=== PATIENT | female | born 1950 | race Caucasian/White ===

== ENCOUNTER 2021-02-15 15:24 | Emergency (ER) | payer MEDICARE, OTHER ==
[2021-02-15] MEDS ORDERED: Sodium Chloride 0.9% 10 ML Syringe FLUSH PRN (16:08)
--- NOTE | 2021-02-15 16:25 | EDM.PDOC ---
ED HPI GENERAL MEDICAL PROBLEM - General Chief Complaint: Respiratory Problem Stated Complaint: COVID +\COUGH Time Seen by Provider: 02/15/21 15:51 Source of Information: Reports: Patient History Limitations: Reports: No Limitations - History of Present Illness INITIAL COMMENTS - FREE TEXT/NARRATIVE: 70-year-old female presents the emergency department today with complaints of w orsening Covid symptoms. States she developed symptoms approximately 7 days ago consistent with cough, shortness of breath, body aches, nausea and diarrhea. She states she was seen at [facility] yesterday and tested positive for Covid. States she is feeling weaker today. Has not been able to eat or drink much of anything due to the nausea and diarrhea. She states she has been checking her oxygen level at home and she is consistently been 98% on room air. Patient states she did not have her Covid vaccines this year. She does have a history of diabetes. She did not have her Covid vaccine. - Related Data Allergies Allergy/AdvReac Type Severity Reaction Status Date / Time No Known Allergies Allergy Verified 02/15/21 16:22 Home Meds: Home Meds Chlorthalidone 25 mg PO DAILY 02/15/21 [History] Potassium Chloride 20 meq PO DAILY 02/15/21 [History] Simvastatin [Zocor] 40 mg PO BEDTIME 02/15/21 [History] metFORMIN HCl [Metformin HCl] 1,000 mg PO BID 02/15/21 [History] Past Medical History - Past Health History Medical/Surgical History: Denies Medical/Surgical History - Infectious Disease History Infectious Disease History: Reports: Novel Coronavirus Social & Family History - Family History Family Medical History: No Pertinent Family History - Tobacco Use Tobacco Use Status *Q: Never Tobacco User Second Hand Smoke Exposure: No - Caffeine Use Caffeine Use: Reports: Coffee - Recreational Drug Use Recreational Drug Use: No ED ROS GENERAL - Review of Systems Review Of Systems: Comprehensive ROS is negative, except as noted in HPI. ED EXAM, GENERAL - Physical Exam Exam: See Below Exam Limited By: No Limitations General Appearance: Alert, WD/WN, No Apparent Distress Ears: Normal External Exam, Hearing Grossly Normal Nose: Normal Inspection Throat/Mouth: Normal Inspection, Normal Lips, Normal Voice, No Airway Compromise Head: Atraumatic Neck: Normal Inspection, Supple Respiratory/Chest: No Respiratory Distress, No Accessory Muscle Use, Decreased Breath Sounds, Crackles (Lateral bases posteriorly), Wheezing (Fine expiratory wheeze noted anteriorly) Cardiovascular: Normal Peripheral Pulses, Regular Rate, Rhythm, No Edema, No Murmur Peripheral Pulses: 2+: Radial (L), Radial (R) GI/Abdominal: Normal Bowel Sounds, Soft, Non-Tender, No Distention (Female) Exam: Deferred Rectal (Female) Exam: Deferred Back Exam: Normal Inspection, Full Range of Motion Extremities: Normal Inspection, Normal Range of Motion, Non-Tender, No Pedal Edema, Normal Capillary Refill Neurological: Alert, Oriented, Normal Cognition Psychiatric: Normal Affect, Normal Mood Skin Exam: Warm, Dry, Intact, Normal Color, No Rash Lymphatic: No Adenopathy Course - Vital Signs Text/Narrative:: Physical exam reveals an ill-appearing female. She is 92 to 93% on room air. Lung sounds reveal fine expiratory wheeze noted anteriorly with crackles noted to the bilateral bases posteriorly. Will obtain lab studies to include a CBC, CMP, C-reactive protein, magnesium and a D-dimer. Also obtain a portable chest x-ray. Last Recorded V/S: Last Vital Signs Temp 98.2 F 02/15/21 21:00 Pulse 64 02/15/21 21:00 Resp 14 02/15/21 21:00 BP 117/70 02/15/21 21:00 Pulse Ox 94 L 02/15/21 21:00 - Orders/Labs/Meds Labs: Laboratory Tests 02/15/21 02/15/21 02/15/21 Range/Units 16:50 16:50 16:50 WBC 3.54 L (3.98-10.04) K/mm3 RBC 4.22 (3.98-5.22) M/mm3 Hgb 12.9 (11.2-15.7) gm/dl Hct 37.3 (34.1-44.9) % MCV 88.4 (79.4-94.8) fl MCH 30.6 (25.6-32.2) pg MCHC 34.6 (32.2-35.5) g/dl RDW Std Deviation 38.3 (36.4-46.3) fL Plt Count 109 L (182-369) K/mm3 MPV 9.6 (9.4-12.3) fl Neut % (Auto) 75.4 H (34.0-71.1) % Lymph % (Auto) 14.7 L (19.3-51.7) % Grant % (Auto) 9.3 (4.7-12.5) % Eos % (Auto) 0 L (0.7-5.8) Baso % (Auto) 0.0 L (0.1-1.2) % Neut # (Auto) 2.67 (1.56-6.13) K/mm3 Lymph # (Auto) 0.52 L (1.18-3.74) K/mm3 Grant # (Auto) 0.33 (0.24-0.36) K/mm3 Eos # (Auto) 0.00 L (0.04-0.36) K/mm3 Baso # (Auto) 0.00 L (0.01-0.08) K/mm3 D-Dimer, Quantitative 0.77 H (0.19-0.50) mg/L Sodium 130 L (136-145) mEq/L Potassium 3.0 L (3.5-5.1) mEq/L Chloride 90 L (98-107) mEq/L Carbon Dioxide 33 H (21-32) mEq/L Anion Gap 10.0 (5-15) BUN 9 (7-18) mg/dL Creatinine 0.8 (0.55-1.02) mg/dL Est Cr Clr Drug Dosing TNP Estimated GFR (MDRD) > 60 (>60) mL/min BUN/Creatinine Ratio 11.3 L (14-18) Glucose 146 H (70-99) mg/dL Calcium 8.4 L (8.5-10.1) mg/dL Magnesium 1.4 L (1.8-2.4) mg/dL Total Bilirubin 0.6 (0.2-1.0) mg/dL AST 34 (15-37) U/L ALT 27 (14-59) U/L Alkaline Phosphatase 62 (46-116) U/L C-Reactive Protein 8.2 H* (<1.0) mg/dL Total Protein 6.6 (6.4-8.2) g/dl Albumin 3.3 L (3.4-5.0) g/dl Globulin 3.3 gm/dL Albumin/Globulin Ratio 1.0 (1-2) Meds: Medications Discontinued Medications Generic Name Dose Route Start Last Admin Trade Name Freq PRN Reason Stop Dose Admin Diphenhydramine HCl 50 mg 02/15/21 18:23 Diphenhydramine 50 Mg/Ml Sdv IVPUSH ASDIRECTED PRN hypersensitivity reaction Epinephrine HCl 0.3 mg 02/15/21 18:23 Epinephrine 1 Mg/Ml Sdv IM ASDIRECTED PRN hypersensitivity reaction Famotidine 20 mg 02/15/21 18:23 Famotidine 20 Mg/2 Ml Sdv IVPUSH ASDIRECTED PRN hypersensitivity reaction Sodium Chloride 1,000 mls @ 250 mls/hr 02/15/21 16:30 02/15/21 16:31 Normal Saline IV 250 mls/hr ASDIRECTED PRAKASH Administration CASIRIVIMAB/IMDEVIMAB 10 ml/ 110 mls @ 220 mls/hr 02/15/21 18:23 02/15/21 19:31 Sodium Chloride IV 02/15/21 18:52 220 mls/hr ONETIME ONE Administration Magnesium Oxide 400 mg 02/15/21 19:30 02/15/21 20:21 Magnesium Oxide 400 Mg Tab PO 02/15/21 19:31 400 mg ONETIME ONE Administration Methylprednisolone Sodium Succinate 125 mg 02/15/21 18:23 Methylprednisolone Sodium Succinate 125 Mg/2 Ml Sdv IVPUSH ASDIRECTED PRN hypersensitivity reaction Ondansetron HCl 4 mg 02/15/21 18:23 02/15/21 18:45 Ondansetron 4 Mg/2 Ml Sdv IVPUSH 02/15/21 18:24 4 mg ONETIME ONE Administration Potassium Chloride 40 meq 02/15/21 18:23 02/15/21 18:46 Potassium Chloride 20 Meq Tab.Er PO 02/15/21 18:24 40 meq ONETIME ONE Administration Potassium Chloride 40 meq 02/15/21 21:07 02/15/21 21:25 Potassium Chloride 20 Meq Tab.Er PO 02/15/21 21:08 40 meq ONETIME ONE Administration Sodium Chloride 10 ml 02/15/21 16:08 02/15/21 16:28 Sodium Chloride 0.9% 10 Ml Syringe FLUSH 10 ml ASDIRECTED PRN Administration Keep Vein Open Sodium Chloride 30 ml 02/15/21 18:30 Sodium Chloride 0.9% 10 Ml Syringe FLUSH ASDIRECTED PRAKASH - Radiology Interpretation Free Text/Narrative:: Infiltrates noted to right lower lobe as well as left upper and lower lobe. Fo rmal radiologist report is pending. - Re-Assessments/Exams Free Text/Narrative Re-Assessment/Exam: 02/15/21 18:01 Radiologist impression frontal view of the chest: 1. Patchy areas of increased density on both sides of the chest which is worse on the left side. Findings are compatible with COVID-19 pneumonia. 02/15/21 18:20 I spoke with the patient to provide information about Regeneron for herself. I offered her the fax sheet for patients and caregivers for Regeneron to read and review. I stated the therapy has been approved by an emergency use auth orization process and has not fully been FDA reviewed or approved. I shared the potential risks from the therapy including risks/adverse reactions. I discussed there are other potential treatment options that are currently not FDA approved to treat COVID-19. Discussed with the patient that is not an exclusion for Regeneron treatment with the therapy has not been fully evaluated in patients. Offered opportunity ask questions and all questions were answered. Patient voiced understanding and agreed to proceed with treatment for herself. Hematology reveals a WBC of 3.54, hemoglobin 12.9, hematocrit 37.3, platelet count 109 Coagulation reveals a D-dimer of 0.77 Chemistry reveals a sodium of 130, potassium 3.0, chloride 90, carbon dioxide 33, anion gap 10, BUN 9, creatinine 0.8, glucose 146, magnesium 1.4, C-reactive protein 8.2 We will give the patient potassium 40 mEq p.o. As well as an oral dose of magnesium. 02/15/21 21:20 Patient has completed her infusion. She has also been observed for 1 hour after infusion. She will be discharged home with recommendations that she continue to quarantine for total 10 days from symptom onset. We will also send her home with potassium chloride 40 mill equivalent tab to be taken tomorrow in the a.m. with food. Departure - Departure Time of Disposition: 21:30 Disposition: Home, Self-Care 01 Condition: Good Clinical Impression: COVID-19 - Discharge Information Instructions: COVID-19: Quarantine vs. Isolation - [facility] (03/06/2020) Referrals: Mirella Alberto MD [Primary Care Provider] - Forms: ED Department Discharge Additional Instructions: You were seen in the emergency department today with complaints of worsening Covid symptoms. Lab studies were completed and they did show that your potassium level was low. You did receive oral potassium supplementation while in the emergency department. I also did send supplementation home with you this evening to be taken tomorrow morning with food. Be sure you are drinking plenty of electrolyte rich fluids such as Gatorade or Powerade. Eat small frequent meals. Recommend that you get plenty of rest. Chest x-ray was completed which does show some pneumonia in your lungs however this is viral in origin and cannot be treated with antibiotics. You did receive antibody treatment for Covid while in the emergency department. You likely will begin to feel better within the next couple of days. However, you do need to continue to quarantine for a total of 10 days time from the onset of your first symptoms. Should your condition worsen or change, do not hesitate returning to the emergency department. Sepsis Event Note (ED) - Evaluation Sepsis Screening Result: No Definite Risk
[2021-02-15] MEDS ORDERED: Sodium Chloride 0.9% 1,000 ML IV SCH (16:30)
--- NOTE | 2021-02-15 17:03 | CR ---
Chest: Frontal view of the chest was obtained. Comparison: No prior chest imaging is available. Patchy areas of increased density are seen within both sides of the chest, worse on the left side. Heart size is normal. Thoracic aorta appears to be tortuous. Bony structures are osteopenic. Nothing acute is seen within the osseous structures. Impression: 1. Patchy areas of increased density on both sides of the chest which is worse on the left side. Findings are compatible with COVID-19 pneumonia. Diagnostic code #3
[2021-02-15] MEDS ORDERED: Famotidine 20 MG/2 ML SDV IVPUSH PRN (18:23)
[2021-02-15] MEDS ORDERED: Ondansetron 4 MG/2 ML SDV IVPUSH ONE (18:23)
[2021-02-15] MEDS ORDERED: Potassium Chloride 20 MEQ Tab.ER PO ONE ×2 (18:23→21:07)
[2021-02-15] MEDS ORDERED: EPINEPHrine 1 MG/ML SDV IM PRN (18:23)
[2021-02-15] MEDS ORDERED: methylPREDNISolone Sodium Succinate 125 MG/2 ML SDV IVPUSH PRN (18:23)
[2021-02-15] MEDS ORDERED: diphenhydrAMINE 50 MG/ML SDV IVPUSH PRN (18:23)
[2021-02-15] MEDS ORDERED: Sodium Chloride 0.9% 10 ML Syringe FLUSH SCH (18:30)
[2021-02-15] MEDS ORDERED: Magnesium Oxide 400 MG Tab PO ONE (19:30)
== END 2021-02-15 21:21 | disposition home or self-care (01) ==
LOC: JD.ED 15:24
DX: U07.1 COVID-19 (principal); E11.9 Type 2 diabetes mellitus without complications; Z79.84 Long term (current) use of oral hypoglycemic drugs
CPT/HCPCS: 36415; 71045; 80053; 83735; 85025; 85379; 86140; 96374; 99284; A9270; J2405; J7030; M0243; Q0243

== ENCOUNTER 2021-02-18 11:18 | Emergency (ER) | payer MEDICARE, OTHER ==
[2021-02-18] MEDS ORDERED: Sodium Chloride 0.9% 10 ML Syringe FLUSH PRN (11:41)
[2021-02-18] MEDS ORDERED: Dexamethasone 6 MG TABLET PO ONE (11:44)
[2021-02-18] MEDS ORDERED: Sodium Chloride 0.9% 1,000 ML IV STA (11:44)
[2021-02-18] MEDS ORDERED: Ondansetron 4 MG/2 ML SDV IVPUSH ONE (11:44)
--- NOTE | 2021-02-18 12:20 | CR ---
Chest: Frontal view of the chest was obtained. Comparison: Prior chest x-ray of 02/15/21. Increasing density is seen within both sides of the chest when compared to prior study. Heart size is normal. Tortuous thoracic aorta is seen. Bony structures show nothing acute. Impression: 1. Increasing density within both sides of the chest compatible with increasing COVID-19 pneumonia. Diagnostic code #3
[2021-02-18] MEDS ORDERED: Potassium Chloride 20 MEQ Tab.ER PO ONE (13:08)
--- NOTE | 2021-02-18 13:08 | EDM.PDOC ---
ED HPI GENERAL MEDICAL PROBLEM - General Chief Complaint: Respiratory Problem Stated Complaint: COVID+ SOB Time Seen by Provider: 02/18/21 11:30 Source of Information: Reports: Patient, Old Records, RN Notes Reviewed History Limitations: Reports: No Limitations - History of Present Illness INITIAL COMMENTS - FREE TEXT/NARRATIVE: Patient is a 70-year-old female returning to the emergency department for evaluation of ongoing Covid symptoms. She is on day 10 of her illness. Complains of cough, shortness of breath, body aches, nausea, intermittent abdominal pain, decreased appetite, and diarrhea. She was seen in this emergency department 3 days ago. Had work-up completed which showed hypokalemia and Covid pneumonia. She received monoclonal antibody infusion on that day. She reports symptoms have not improved. She denies any significant chest pain or shortness of breath at rest. She is in watching her oxygen saturations and states that they have been "fluctuating in the 80s and 90s". She denies any known fevers. She has not been taking any over the counter medications for treatment. Left Upper Abdomen Pain Score (Numeric/FACES): 6 - Related Data Allergies Allergy/AdvReac Type Severity Reaction Status Date / Time No Known Allergies Allergy Verified 02/15/21 16:22 Home Meds: Home Meds Chlorthalidone 25 mg PO DAILY 02/15/21 [History] Potassium Chloride 20 meq PO DAILY 02/15/21 [History] Simvastatin [Zocor] 40 mg PO BEDTIME 02/15/21 [History] metFORMIN HCl [Metformin HCl] 1,000 mg PO BID 02/15/21 [History] Nitrofurantoin Monohyd/M-Cryst [Macrobid 100 mg Capsule] 100 mg PO BID 5 Days #9 capsule 02/18/21 [Rx] Ondansetron [Zofran ODT] 4 mg PO Q6H PRN #10 tab.dis 02/18/21 [Rx] dexAMETHasone [Decadron] 6 mg PO DAILY #4 tablet 02/18/21 [Rx] Past Medical History - Past Health History Medical/Surgical History: Denies Medical/Surgical History Endocrine/Metabolic History: Reports: Diabetes, Type II - Infectious Disease History Infectious Disease History: Reports: Novel Coronavirus - Past Surgical History HEENT Surgical History: Reports: Tonsillectomy Social & Family History - Family History Family Medical History: No Pertinent Family History - Tobacco Use Tobacco Use Status *Q: Never Tobacco User Second Hand Smoke Exposure: No - Caffeine Use Caffeine Use: Reports: None - Recreational Drug Use Recreational Drug Use: No ED ROS GENERAL - Review of Systems Review Of Systems: See Below Constitutional: Reports: Weakness, Fatigue, Decreased Appetite. Denies: Fever, Chills HEENT: Reports: No Symptoms Respiratory: Reports: Shortness of Breath, Cough Cardiovascular: Reports: Dyspnea on Exertion. Denies: Chest Pain, Lightheadedness, Palpitations, Syncope Endocrine: Reports: No Symptoms GI/Abdominal: Reports: Abdominal Pain, Diarrhea, Nausea. Denies: Vomiting : Reports: No Symptoms Musculoskeletal: Reports: No Symptoms Skin: Reports: No Symptoms Neurological: Reports: No Symptoms Psychiatric: Reports: No Symptoms Hematologic/Lymphatic: Reports: No Symptoms Immunologic: Reports: No Symptoms ED EXAM, GENERAL - Physical Exam Exam: See Below Exam Limited By: No Limitations General Appearance: Alert, WD/WN, No Apparent Distress Eye Exam: Bilateral Eye: Normal Inspection Respiratory/Chest: No Respiratory Distress, No Accessory Muscle Use, Chest Non- Tender, Other (Faint crackles to left lower lobe. Lungs are otherwise clear.) Cardiovascular: Normal Peripheral Pulses, Regular Rate, Rhythm, No Edema, No Gallop, No JVD, No Murmur, No Rub GI/Abdominal: Normal Bowel Sounds, Soft, Non-Tender, No Organomegaly, No Distention, No Abnormal Bruit, No Mass Neurological: Alert, Oriented, Normal Cognition, Normal Gait, No Motor/Sensory Deficits Psychiatric: Normal Affect, Normal Mood Skin Exam: Warm, Dry, Intact, Normal Color, No Rash #1 Interpretation EKG Date: 02/18/21 Time: 11:47 Rhythm: NSR Rate (Beats/Min): 76 Epps: Normal P-Wave: Present QRS: Normal ST-T: Normal QT: Normal EKG Interpretation Comments: PVC Course - Vital Signs Last Recorded V/S: Last Vital Signs Temp 97.8 F 02/18/21 11:25 Pulse 69 02/18/21 14:08 Resp 28 H 02/18/21 14:08 BP 124/69 02/18/21 14:08 Pulse Ox 91 L 02/18/21 14:08 - Orders/Labs/Meds Orders: Active Orders 24 hr Category Date Time Status CULTURE URINE [MREF] Stat Lab 02/18/21 12:30 Received Peripheral IV Insertion Adult [OM.PC] Stat Oth 02/18/21 11:40 Ordered Labs: Laboratory Tests 02/18/21 02/18/21 02/18/21 Range/Units 12:05 12:05 12:05 WBC 5.67 (3.98-10.04) K/mm3 RBC 4.28 (3.98-5.22) M/mm3 Hgb 12.9 (11.2-15.7) gm/dl Hct 37.9 (34.1-44.9) % MCV 88.6 (79.4-94.8) fl MCH 30.1 (25.6-32.2) pg MCHC 34.0 (32.2-35.5) g/dl RDW Std Deviation 38.4 (36.4-46.3) fL Plt Count 177 L (182-369) K/mm3 MPV 9.4 (9.4-12.3) fl Neut % (Auto) 81.6 H (34.0-71.1) % Lymph % (Auto) 10.2 L (19.3-51.7) % [place] % (Auto) 7.8 (4.7-12.5) % Eos % (Auto) 0 L (0.7-5.8) Baso % (Auto) 0.2 (0.1-1.2) % Neut # (Auto) 4.63 (1.56-6.13) K/mm3 Lymph # (Auto) 0.58 L (1.18-3.74) K/mm3 [place] # (Auto) 0.44 H (0.24-0.36) K/mm3 Eos # (Auto) 0.00 L (0.04-0.36) K/mm3 Baso # (Auto) 0.01 (0.01-0.08) K/mm3 Manual Slide Review Abnormal smear D-Dimer, Quantitative 0.82 H (0.19-0.50) mg/L Sodium 135 L (136-145) mEq/L Potassium 3.2 L (3.5-5.1) mEq/L Chloride 95 L (98-107) mEq/L Carbon Dioxide 31 (21-32) mEq/L Anion Gap 12.2 (5-15) BUN 13 (7-18) mg/dL Creatinine 0.7 (0.55-1.02) mg/dL Est Cr Clr Drug Dosing 57.46 mL/min Estimated GFR (MDRD) > 60 (>60) mL/min BUN/Creatinine Ratio 18.6 H (14-18) Glucose 198 H (70-99) mg/dL Calcium 8.6 (8.5-10.1) mg/dL Total Bilirubin 0.6 (0.2-1.0) mg/dL AST 39 H (15-37) U/L ALT 38 (14-59) U/L Alkaline Phosphatase 74 (46-116) U/L Troponin I < 0.017 (0.00-0.056) ng/mL C-Reactive Protein 11.4 H* (<1.0) mg/dL Total Protein 6.4 (6.4-8.2) g/dl Albumin 2.8 L (3.4-5.0) g/dl Globulin 3.6 gm/dL Albumin/Globulin Ratio 0.8 L (1-2) Urine Color (Yellow) Urine Appearance (Clear) Urine pH (5.0-8.0) Ur Specific Evans (1.005-1.030) Urine Protein (Negative) Urine Glucose (UA) (Negative) Urine Ketones (Negative) Urine Occult Blood (Negative) Urine Nitrite (Negative) Urine Bilirubin (Negative) Urine Urobilinogen (0.2-1.0) Ur Leukocyte Esterase (Negative) Urine RBC (0-5) /hpf Urine WBC (0-5) /hpf Ur Epithelial Cells (0-5) /hpf Urine Bacteria (FEW) /hpf Urine Mucus (FEW) /hpf 02/18/21 Range/Units 12:30 WBC (3.98-10.04) K/mm3 RBC (3.98-5.22) M/mm3 Hgb (11.2-15.7) gm/dl Hct (34.1-44.9) % MCV (79.4-94.8) fl MCH (25.6-32.2) pg MCHC (32.2-35.5) g/dl RDW Std Deviation (36.4-46.3) fL Plt Count (182-369) K/mm3 MPV (9.4-12.3) fl Neut % (Auto) (34.0-71.1) % Lymph % (Auto) (19.3-51.7) % [place] % (Auto) (4.7-12.5) % Eos % (Auto) (0.7-5.8) Baso % (Auto) (0.1-1.2) % Neut # (Auto) (1.56-6.13) K/mm3 Lymph # (Auto) (1.18-3.74) K/mm3 [place] # (Auto) (0.24-0.36) K/mm3 Eos # (Auto) (0.04-0.36) K/mm3 Baso # (Auto) (0.01-0.08) K/mm3 Manual Slide Review D-Dimer, Quantitative (0.19-0.50) mg/L Sodium (136-145) mEq/L Potassium (3.5-5.1) mEq/L Chloride (98-107) mEq/L Carbon Dioxide (21-32) mEq/L Anion Gap (5-15) BUN (7-18) mg/dL Creatinine (0.55-1.02) mg/dL Est Cr Clr Drug Dosing mL/min Estimated GFR (MDRD) (>60) mL/min BUN/Creatinine Ratio (14-18) Glucose (70-99) mg/dL Calcium (8.5-10.1) mg/dL Total Bilirubin (0.2-1.0) mg/dL AST (15-37) U/L ALT (14-59) U/L Alkaline Phosphatase (46-116) U/L Troponin I (0.00-0.056) ng/mL C-Reactive Protein (<1.0) mg/dL Total Protein (6.4-8.2) g/dl Albumin (3.4-5.0) g/dl Globulin gm/dL Albumin/Globulin Ratio (1-2) Urine Color Yellow (Yellow) Urine Appearance Clear (Clear) Urine pH 7.5 (5.0-8.0) Ur Specific Evans 1.020 (1.005-1.030) Urine Protein Trace H (Negative) Urine Glucose (UA) Negative (Negative) Urine Ketones Negative (Negative) Urine Occult Blood Negative (Negative) Urine Nitrite Negative (Negative) Urine Bilirubin Negative (Negative) Urine Urobilinogen 4.0 H (0.2-1.0) Ur Leukocyte Esterase 1+ H (Negative) Urine RBC 0-5 (0-5) /hpf Urine WBC 10-20 H (0-5) /hpf Ur Epithelial Cells 0-5 (0-5) /hpf Urine Bacteria Moderate H (FEW) /hpf Urine Mucus Rare (FEW) /hpf Meds: Medications Discontinued Medications Generic Name Dose Route Start Last Admin Trade Name Freq PRN Reason Stop Dose Admin Dexamethasone 6 mg 02/18/21 11:44 02/18/21 12:07 Dexamethasone 6 Mg Tablet PO 02/18/21 11:45 6 mg ONETIME ONE Administration Sodium Chloride 1,000 mls @ 100 mls/hr 02/18/21 11:44 02/18/21 12:07 Normal Saline IV 02/18/21 21:43 100 mls/hr NOW STA Administration Nitrofurantoin Macrocrystals 100 mg 02/18/21 13:15 Nitrofurantoin Monohydrate/Macrocrystalline 100 Mg Cap PO 02/18/21 13:16 ONETIME ONE Ondansetron HCl 4 mg 02/18/21 11:44 02/18/21 12:08 Ondansetron 4 Mg/2 Ml Sdv IVPUSH 02/18/21 11:45 4 mg ONETIME ONE Administration Potassium Chloride 40 meq 02/18/21 13:08 Potassium Chloride 20 Meq Tab.Er PO 02/18/21 13:09 ONETIME ONE Sodium Chloride 10 ml 02/18/21 11:41 02/18/21 12:07 Sodium Chloride 0.9% 10 Ml Syringe FLUSH 10 ml ASDIRECTED PRN Administration Keep Vein Open - Re-Assessments/Exams Free Text/Narrative Re-Assessment/Exam: Patient is a 70-year-old female presenting to the emergency department for reevaluation of Covid symptoms. She is on approximately day 10 of her illness. She received monoclonal antibody infusion 3 days ago. Work-up at that time showed that she had a low potassium. She received 40 mEq of oral potassium in the ER and was sent home with an additional 40 mill equivalent dose. She takes 20 mEq daily on a regular basis. Continues to complain of diarrhea with nausea no vomiting. She has intermittent abdominal pain, however on exam, she has no abdominal tenderness. Lung sounds revealed fine crackles left lower lobe otherwise clear to auscultation. During the triage process, patient was initially 91% on room air with a respiratory of 36, however after resting oxygen saturation has improved to 94% on room air with a respiratory rate of 24. For today's purposes, we will repeat blood work including CBC, CMP, CRP, troponin, D-dimer. Have ordered EKG and chest x-ray. Also complete urinalysis to ensure she does not have urinary tract infection. I will give her IV fluids of NS at 100 mill per hour, Zofran 4 mg IV, and dexamethasone 6 mg orally. 02/18/21 13:15 Hematology significant for platelet count slightly low at 177, D-dimer minimally elevated 0.82, sodium 135, potassium 3.2, chloride 95, glucose 198, CRP 11.4. Troponin is undetectably low. Urinalysis significant for 1+ leukocyte esterase, 10-20 WBCs, and moderate bacteria. Chest x-ray shows worsening Covid pneumonia. Patient is maintaining oxygen saturations at 93 to 95% on room air. I will order 40 mEq of oral potassium to be given now. She is currently taking 20 mEq daily and we will plan to have her continue this. She will be started on dexamethasone 6 mg daily, she did receive her first dose here. Discussed with patient that this will likely cause an increase in her blood sugars, however this should return to normal once treatment is complete. Also to start her on Macrobid for treatment of bacturia. Urine has been sent for culture. She will be provided with prescription for Zofran for nausea. Recommend that she continue to monitor her oxygen saturations and return to ER as needed. She verbalized understanding of this and agreed with plan. Discharge instructions as documented. Departure - Departure Time of Disposition: 13:19 Disposition: Home, Self-Care 01 Condition: Good Clinical Impression: Pneumonia due to 2019 novel coronavirus - Discharge Information *PRESCRIPTION DRUG MONITORING PROGRAM REVIEWED*: No *COPY OF PRESCRIPTION DRUG MONITORING REPORT IN PATIENT AUDI: No Prescriptions: dexAMETHasone [Decadron] 6 mg PO DAILY #4 tablet Nitrofurantoin Monohyd/M-Cryst [Macrobid 100 mg Capsule] 100 mg PO BID 5 Days #9 capsule Ondansetron [Zofran ODT] 4 mg PO Q6H PRN #10 tab.dis PRN Reason: Nausea/Vomiting Instructions: COVID-19 Referrals: Mirella Alberto MD [Primary Care Provider] - Forms: ED Department Discharge Additional Instructions: Take the dexamethasone, Macrobid, and Zofran as prescribed. Use Tylenol or ibuprofen as needed for discomfort. Increase intake of oral fluids as tolerated. Continue previously prescribed medications. Continue to monitor your oxygen saturations at home. If you are maintaining an oxygen level of 88% or lower and not coming up, or you experience any other new or worsening symptoms, please return to the emergency department for reevaluation. Sepsis Event Note (ED) - Evaluation Sepsis Screening Result: No Definite Risk - Focused Exam Vital Signs: Vital Signs Temp Pulse Resp BP Pulse Ox 02/18/21 14:08 69 28 H 124/69 91 L 02/18/21 11:25 97.8 F 75 36 H 144/90 H 91 L - My Orders Last 24 Hours: My Active Orders 02/18/21 11:40 Peripheral IV Insertion Adult [OM.PC] Stat 02/18/21 12:30 CULTURE URINE [MREF] Stat - Assessment/Plan Last 24 Hours: My Active Orders 02/18/21 11:40 Peripheral IV Insertion Adult [OM.PC] Stat 02/18/21 12:30 CULTURE URINE [MREF] Stat
[2021-02-18] MEDS ORDERED: Nitrofurantoin Monohydrate/Macrocrystalline 100 MG Cap PO ONE (13:15)
== END 2021-02-18 13:59 | disposition home or self-care (01) ==
LOC: JD.ED 11:18
DX: U07.1 COVID-19 (principal); J12.82 Pneumonia due to coronavirus disease 2019; E11.9 Type 2 diabetes mellitus without complications; Z79.84 Long term (current) use of oral hypoglycemic drugs
CPT/HCPCS: 36415; 71045; 80053; 81001; 84484; 85025; 85379; 86140; 87086; 93005; 96374; 99285; J2405; J7030; 93010; J8540